=== PATIENT | male | born 1965 | race Caucasian/White ===

== ENCOUNTER 2018-01-25 08:44 | Day surgery (SDC) | payer OTHER ==
[~2018-01-25] VITALS: Ht 177.8 cm; Wt 115.7 kg
[~2018-01-25 08:44] MED LIST: LAMICTAL200 M1 PO; MELATONIN10 M1 PO; METOPROL TAR25 MG PO; VIMPAT200 MG PO
[2018-01-25] MEDS ORDERED: OXYCODONE HCL5 MG PO (09:03)
[2018-01-25 11:15] VITALS: BP 144/77
== END 2018-01-25 11:20 | disposition home or self-care (01) | DRG 392 ==
LOC: ENDO 08:44 → ORM 11:30 → ENDO 11:30
PROVIDERS: ATTEND Surgery
PROC: 0DJD8ZZ Inspection of Lower Intestinal Tract, Via Natural or Artificial Opening Endoscopic (ICD-10-PCS; principal; 2018-01-25)
DX: R10.31 Right lower quadrant pain (principal); M54.9 Dorsalgia, unspecified; N50.811 Right testicular pain